=== PATIENT | male | born 1965 | race Caucasian/White ===

== ENCOUNTER 2020-04-30 12:38 | Outpatient (REF) | payer OTHER, SELFPAY ==
[2020-04-30 12:57] LABS: Anion Gap 9.5 mmol/L (3-11); BUN 16 mg/dL (7-18); CO2 28.5 mmol/L (21.0-32.0); CREATININE 1.03 mg/dL (0.70-1.30); Calcium 9.3 mg/dL (8.5-10.1); Chloride 101 mmol/L (98-107); Glucose 74 mg/dL (74-106); Potassium 4.5 mmol/L (3.5-5.1); Sodium 139 mmol/L (136-145)
[2020-04-30 13:03] LABS: Abs Immature Grans 0.04 k/cumm (0.0-0.09); Absolute Basophil Count 0.03 k/cumm (0.0-0.2); Absolute Eosinophil Count 0.19 k/cumm (0.0-0.7); Absolute Monocyte Count 0.76 k/cumm (0.11-0.7); Absolute Neutrophil Count 6.44 k/cumm (1.2-6.7); Basophils % 0.4; Eosinophils % 2.2; HCT 45.6 % (40.0-50.0); HGB 15.2 g/dL (13.5-17.5); Immature Grans % 0.5 %; Lymphocytes % 12.9; Mean Corp. HGB Concentration 33.3 g/dL (32.0-36.0); Mean Corpuscular Hemoglobin 30.9 pg (27.0-33.0); Mean Corpuscular Volume 92.7 fL (80-95); Mean Platelet Volume 9.1 fL (8.0-11.0); Monocytes % 8.9; Neutrophils % 75.1; Platelet Count 346 x1000/uL (130-400); RBC 4.92 m/cumm (4.50-6.00); RBC Distribution Width 13.2 % (11.8-14.1); White Blood Cell Count 8.56 k/cumm (4.4-10.8)
== END 2020-04-30 12:58 ==
LOC: LBN 12:38
PROVIDERS: PCP Family Medicine; Visit Provider Nurse Practitioner Family
DX: Z01.818 Encounter for other preprocedural examination (principal)
CPT/HCPCS: 80048; 85025

== ENCOUNTER 2020-05-02 06:29 | Day surgery (SDC) | payer OTHER, SELFPAY ==
[2020-05-02 06:30] VITALS: BP 132/90; PULSE 65; RESP 18; TEMP 35.4; O2SAT 97
[2020-05-02] MEDS: Tetracaine 0.5% 4 ML BTL OD (07:32)
[2020-05-02] MEDS: Lidocaine 2% Jelly 6 ML SYR (07:33)
[2020-05-02] MEDS: Lidocaine 1% Pres-Free 5 ML VIAL (07:43)
[2020-05-02] MEDS: Balanced Salt Soln.-PLUS 500 ML BAG (07:45)
[2020-05-02] MEDS: Trypan Blue 0.06% 0.5 ML SYR (07:49)
[2020-05-02] MEDS: Moxifloxacin-PF 1 MG/ML VIAL (07:50)
--- NOTE | 2020-05-02 08:10 | W.PM.DSUDISC ---
Discharge Plan Disposition Patient Disposition: HOME Condition: Good Discharge Details Reason For Visit: CATARACT OD Attending Provider: Jensen Cosme Primary Care Provider: Jabari Morales Home Meds and New Rx's Prescriptions: No Action No Known Home Meds RF: 0 Discharge Instructions Stand Alone Forms: Post-op Block Cataract, Post-op Topical Cataract, Aroldo Yung (DSU) Discharge Orders Discharge Orders: Discharge Order (Routine); Ordered 05/02/20 Ordered By: Jensen Cosme DS: Diagnosis Discharge Diagnosis (1) Nuclear sclerotic cataract of right eye: Status: Resolved (2) Posterior subcapsular age-related cataract, right eye: Status: Resolved
--- NOTE | 2020-05-02 08:11 | W.PM.OP ---
Date of service: 05/02/20 Time of Service: 08:12 Operative Note Operative Note DATE OF PROCEDURE: 05/02/20 PRE-OP DIAGNOSIS: Nuclear/posterior subcapsular cataract, right eye; status post myopic LASIK, right eye; poor red reflex, right eye secondary to cataract POST-OP DIAGNOSIS: same PROCEDURE: Cataract extraction using phacoemulsification with intraocular lens implantation, right eye, using capsular staining with Vision Blue SURGEON: Jensen Cosme ANESTHESIA: MAC (with local sub-tenon's anesthetic injection) PATHOLOGY: none sent COMPLICATIONS: None Patient was transported to: same day Patient's condition: stable Implants: Mike [employer] Mike / [employer] Tecnis [id number] Indications: Progressive visual loss due to cataract, right eye Procedure Description: CATARACT SURGERY OPERATIVE REPORT PREOPERATIVE DIAGNOSIS: 1. Nuclear/posterior subcapsular cataract, right eye 2. Poor red reflex secondary to #1 3. Status post myopic LASIK POSTOPERATIVE DIAGNOSIS: Same OPERATION: 1. Cataract extraction using phacoemulsification with posterior chamber intraocular lens implant, right eye. 2. Capsular staining with Vision Blue IOL: IOL Calendar Control Clerk Blood Bank/Model: Mike & Mike / GISELL Tecnis [id number] IOL Power: + 22.0 diopters IOL Serial Number: [id number] Optic Diameter: 6.0mm Haptic/Overall Diameter: 13.0mm PHACO INFO: Jordan Plura Processingurion Vision System with OZil and Active Fluidics Cumulative Dispersed Energy (CDE): 13.62 seconds SURGEON: Jensen Cosme MD, SHELLY ANESTHESIA: Monitored Anesthesia Care (MAC), with local sub-tenon's anesthetic infiltration COMPLICATIONS: None SPECIMENS: None INDICATIONS FOR PROCEDURE: The patient is a 54-year-old gentleman with history of diminished visual acuity in his right eye secondary to the development of nuclear and posterior subcapsular cataract. He has a history of myopic LASIK. He has developed a significant posterior subcapsular cataract with moderate nuclear cataract in the right eye with visual acuity of 20/100. The option of cataract surgery was offered to the patient and he wished to proceed. PROCEDURE: The correct surgical eye was identified and marked as the right eye and the pupil was dilated in the preoperative area using mydriatics and cycloplegics. The dilated pupil size was 7.0 mm. Oral sedation was administered in the form of an Imprimis MKO Melt (midazolam 3mg/ketamine 25mg/ondansetron 2mg). The patient was brought to the operating room where cardiopulmonary monitoring was instituted and surgical time-out was performed, confirming the correct operative eye and IOL power. Topical anesthesia was administered and ophthalmic povidone-iodine 5% was instilled into the conjunctival fornices. Lidocaine gel was applied to the cornea and the rowdy-ocular area was prepped with Betadine 10% solution and draped in the usual sterile fashion for intraocular surgery, including an aperture drape. A Tegaderm transparent film dressing was cut in half and used to cover the lashes and lid margins. Care was taken to sequester the lashes and lid margins under the Tegaderm dressing. A lid speculum was placed between the lids of the operative eye and the Shirin-Korey operating microscope was maneuvered into position. Rizwan scissors were then used to make a conjunctival buttonhole approximately 6mm posterior to the limbus in the inferonasal quadrant. Blunt dissection was carried out to expose bare sclera, and a blunt-tipped sub-tenon?s anesthesia cannula was introduced and passed posteriorly along the globe where non-preserved plain lidocaine was injected into posterior sub-Tenon?s space. A sideport knife was used to make a paracentesis port inferotemporally. Intraocular phenylephrine/lidocaine was injected into the anterior chamber. Air was injected into the anterior chamber, followed by Vision Blue, which was painted over the anterior capsule and then irrigated out with BSS. The anterior chamber was filled with Healon Pro. A 2.4mm keratome knife was used to create a half-thickness groove at the limbus and then to construct a three-plane near-clear corneal tunnel extending 2.0mm into clear cornea at the 10:00 position. The globe was soft with low scleral rigidity. A flap was raised on the anterior capsule and capsulorhexis forceps were used to complete a continuous curvilinear capsulorhexis of 4.8 mm. The anterior chamber was noted to be quite deep with a thin capsule which wanted to extend peripherally. The capsulorrhexis was made intentionally smaller than usual due to the thin capsule and tendency to extend peripherally. Balanced salt solution was then used to perform cortical cleaving hydrodissection and nuclear hydrodelineation until the lens could be freely rotated within the capsular bag. The lens nucleus was then disassembled and removed within the capsular bag and iris plane using phacoemulsification. Residual cortical material was removed using the I/A handpiece. The posterior capsule was carefully polished to remove as much residual lens epithelial cells as safely possible. There was some residual posterior subcapsular plaque in the subincisional area which could not be safely removed. The capsular bag was then inflated and the anterior chamber deepened with viscoelastic. The lens implant described above was inserted into the capsular bag using the GISELL [place] Injector. A Kuglen hook was used to dial the IOL into position. A [employer] nucleus manipulator was then used to divehi the underside of the anterior capsule in the subincisional area and in attempt to remove some of the equatorial capsular plaque. Residual viscoelastic was then removed first from posterior to the IOL, then from the anterior chamber using the I/A handpiece. The lens implant was noted to center nicely within the capsular bag. The incisions were stromally hydrated, and the anterior chamber was reformed using BSS. Then 0.5cc of moxifloxacin 1.0mg/ml were injected into the capsular bag and anterior chamber. The incisions were checked with a Weck spear and found to be secure. Several drops of ophthalmic povidone-iodine 5% were then applied to the eye followed by two drops of Imprimis combination prednisolone/moxifloxacin/nepafenac solution. The drapes were removed and a clear plastic protective eye shield was placed over the eye. The patient was then returned to [facility] Day Surgery in stable condition.
[2020-05-02 08:30] VITALS: BP 128/90; PULSE 60; RESP 18; TEMP 36; O2SAT 97
== END 2020-05-02 08:40 | disposition home or self-care (01) ==
PROVIDERS: PCP Family Medicine; Visit Provider Ophthalmology
PROC: (CPT 66982; principal; 2020-05-02 07:30)
DX: H25.11 Age-related nuclear cataract, right eye (principal); H25.041 Posterior subcapsular polar age-related cataract, right eye; H35.89 Other specified retinal disorders; Z98.890 Other specified postprocedural states
CPT/HCPCS: 66982; V2632

== ENCOUNTER 2020-07-22 01:26 | Outpatient (CLI) | payer OTHER, SELFPAY ==
[2020-07-22 09:11] LABS: Calculated LDL 156 mg/dL (<100); Cholesterol 226 mg/dL (<200); HDL Cholesterol 47 mg/dL (40-60); Triglyceride 117 mg/dL (<150)
== END 2020-07-22 01:46 ==
DX: E78.5 Hyperlipidemia, unspecified (principal)
CPT/HCPCS: 36415; 80061

== ENCOUNTER 2020-09-15 17:06 | Emergency (ER) | payer OTHER, SELFPAY ==
--- NOTE | 2020-09-15 17:22 | W.ED.GENAD ---
Discharge Plan Disposition Patient Disposition: HOME Condition: Stable Discharge Details Clinical Impression: Right ankle sprain, Closed pelvic fracture Primary Care Provider: Angelika Ortega ED Provider: Monica Menjivar Home Meds and New Rx's Prescriptions: No Action sildenafil 100 mg tablet 100 mg PO ONCE Qty: 7 RF: 4 Discharge Instructions Instructions: Ankle Sprain (ED), Pelvic Fracture (ED) Additional Instructions: Ice affected areas for 20 minutes 4-5 times daily for the next 1 to 2 days then can use heat or ice Ibuprofen 600 mg with food 4 times daily for the next 5 days then as needed for pain can add acetaminophen 650 mg 4 times daily for breakthrough pain Use walking boot while ambulating for comfort and support Weight-bearing as tolerated Referrals: [facility] [Provider Group] Medical Decision Making mechanical fall from a ladder, right ankle and left sided pain. ambulatory after accident. xrays negative for ankle/foot fracture. pelvis with stable fracture. walking boot applied, patient pain is managed. ambulating well. Medical Records Medical records reviewed: Yes I reviewed the patient's medical records. Medical records narrative: Exam(s) PROCEDURE INFORMATION: Exam: XR Lumbosacral Spine, 2 or 3 Views Exam date and time: 09/15/2020 5:58 PM Age: 54 years old Clinical indication: Injury or trauma; Blunt trauma (contusions or hematomas); Patient HX: Fall injury, back pain low TECHNIQUE: Imaging protocol: XR of the lumbosacral spine, 2 or 3 views. COMPARISON: No relevant images were readily available for comparison purposes. FINDINGS: Bones/joints: Lumbar vertebral body heights well maintained. Alignment is well preserved without significant listhesis. Bony degenerative changes are at most mild. Soft tissues: unremarkable soft tissues. IMPRESSION: No acute fracture or dislocation of the lumbar spine. Dictated and Authenticated by: Jose Galindo MD. Ordering:DELIA Anderson MD PROCEDURE INFORMATION: Exam: XR Right Foot Complete Exam date and time: 09/15/2020 5:54 PM Age: 54 years old Clinical indication: Foot; Right; Patient HX: Pain, swelling TECHNIQUE: Imaging protocol: XR Right foot. Views: 3 or more views. COMPARISON: No relevant images were readily available for comparison purposes. FINDINGS: Bones/joints: No acute fracture or dislocation Soft tissues: Unremarkable IMPRESSION: No acute fracture or dislocation Dictated and Authenticated by: Jose Galindo MD. Ordering:DELIA Anderson MD Exam(s) PROCEDURE INFORMATION: Exam: XR Right Ankle Exam date and time: 09/15/2020 5:37 PM Age: 54 years old Clinical indication: Ankle; Right; Patient HX: Pain, swelling TECHNIQUE: Imaging protocol: XR Right ankle. Views: 3 or more views. COMPARISON: No relevant images were readily available for comparison purposes. FINDINGS: Prominent soft tissue swelling about the ankle. No acute fracture or dislocation. IMPRESSION: Prominent soft tissue swelling about the ankle without acute fracture or dislocation. Dictated and Authenticated by: Jose Galindo MD. Ordering:DELIA Anderson MD Lab Data Lab results reviewed: Yes I reviewed the patient's lab results. HPI General Mode of arrival: wheelchair. Date/Time Provider Initiated Documentation: 09/15/20 17:08. Limitations to Documentation: no limitations. Information obtained by: patient. HPI Narrative: Patient presents for evaluation of right ankle pain after falling off a ladder approximately 7 feet off the ground. States he was ambulatory after the incident, he did not strike his head he has no head or neck pain. No other injury reported Related Data Home Medications Medication Instructions Recorded Confirmed sildenafil 100 mg tablet 100 mg PO ONCE #7 tab 06/10/20 09/15/20 Previous Rx's Medication Instructions Recorded sildenafil 100 mg tablet 100 mg PO ONCE #7 tab 06/10/20 Allergies Allergy/AdvReac Type Severity Reaction Status Date / Time No Known Allergies Allergy Unverified 09/15/20 17:32 General JYOTI: 4 Review of Systems Constitutional Constitutional: Denies fever(s) Eyes Eyes: Denies change in vision ENT Ears, Nose, Mouth, and Throat: Denies dizziness and Denies neck pain Cardiovascular Cardiovascular: Denies chest pain, Denies rapid heart rate and Denies dyspnea Respiratory Respiratory: Denies chest congestion, Denies cough and Denies dyspnea Gastrointestinal Gastrointestinal: Denies abdominal pain, Denies nausea and Denies vomiting Musculoskeletal Musculoskeletal: Denies back pain, Reports myalgias, Denies deformity, Reports arthralgias, Reports joint swelling, Denies neck pain and Denies numbness Integumentary/Breasts Skin/Breast: Denies rash Neurologic Neurologic: Denies dizziness and Denies numbness Hematologic/Lymphatic Hematologic/Lymphatic: Denies easy bleeding and Denies easy bruising [facility] Medical History (Updated 09/15/20 @ 18:24 by Monica Menjivar NP) Effusion, right knee (01/18/18) Hernia Surgical History (Updated 05/02/20 @ 08:11 by Jensen Cosme MD) History of arthroscopic knee surgery History of hernia repair Family History Mother Hyperlipidemia Father Hyperlipidemia Brother Hyperlipidemia Grandfather Neoplasm LUNG/SMOKER Grandfather No problems noted. Grandmother No problems noted. Grandmother , CHILDBIRTH at age 30. No problems noted. Brother No problems noted. Son No problems noted. Daughter No problems noted. Social History (Updated 06/10/20 @ 09:39 by Sally Morin) Smoking/Tobacco Use Status: Never Smoking risk assessment performed?: Yes Alcohol Intake: current Alcohol Intake frequency: 0-2 drinks per day Alcohol type: beer, wine and hard liquor Drug use: Never Substance use type: does not use Household members: spouse Communication Needs: Hard of Hearing Pets and animals: Yes Pets and animals: dog(s) Sexually active: Yes What is your relationship status?: Panel score (0-1 are the most socially isolated patients): 1 Duration: 15-30 minutes/day Frequency: daily Do you feel safe at home: Yes Do you feel safe in your relationship?: Yes Exam Const General: cooperative, healthy appearing and comfortable Nutritional Appearance: overweight Orientation: alert, awake and oriented x3 HENMT Head: normal to inspection, normocephalic and atraumatic Mouth: oral mucosae normal Chest Chest: normal inspection of the chest Resp Effort & Inspection: normal respiratory effort Cardio Rate: regular rate Rhythm: regular rhythm GI Inspection: normal to inspection Palpation: soft Auscultation: normal bowel sounds Skin General skin exam: no rashes or lesions noted Neuro General: patient alert, patient awake, patient oriented x3 and no focal motor deficits
[2020-09-15 17:25] VITALS: BP 139/89; PULSE 72; RESP 16; TEMP 36.3; O2SAT 97
--- NOTE | 2020-09-15 17:30 | DI.RAD_ITS ---
EXAM: XR PELVIS AP CLINICAL HISTORY: fall injury TECHNIQUE: COMPARISON: CR,XR XR LUMBAR SPINE AP, LAT from 09/15/2020 FINDINGS: AP view the pelvis and three views lumbosacral spine were obtained. There is questionable lucency of the superior pubic ramus adjacent to the pubic symphysis, nondisplac ed fracture not excluded, oblique views or CT suggested if there is clinical suspicion of fracture at this site. Otherwise the bones of the pelvis and lumbar spine appear intact except for mild degenerative changes of the lumbar spine and hips. No vertebral compression fracture. Intervertebral disc heights appea r well maintained. IMPRESSION: Questionable finding involving left superior pubic ramus left, fracture not excluded, additional obli que views or CT may be considered if there is symptomatology referable to this area. RADIATION DOSE DELIVERED: Total DLP Total DLP
--- NOTE | 2020-09-15 17:30 | DI.RAD_ITS ---
EXAM: XR ANKLE RT COMPLETE CLINICAL HISTORY: pain swelling TECHNIQUE: COMPARISON: CR LEFT ANKLE COMPLETE from 09/12/2014 CR,XR XR FOOT RT COMPLETE from 09/15/2020 FINDINGS: Three views of the ankle and three views of the foot were obtained. The ankle mortise is well mainta ined. There is moderate soft tissue swelling adjacent to the lateral malleolus. There is no evidenc e of fracture or dislocation involving the bones of the foot or ankle. IMPRESSION: RADIATION DOSE DELIVERED: Total DLP Total DLP
--- NOTE | 2020-09-15 18:06 | DI.VRAD_ITS ---
PROCEDURE INFORMATION: Exam: XR Right Ankle Exam date and time: 09/15/2020 5:37 PM Age: 54 years old Clinical indication: Ankle; Right; Patient HX: Pain, swelling TECHNIQUE: Imaging protocol: XR Right ankle. Views: 3 or more views. COMPARISON: No relevant images were readily available for comparison purposes. FINDINGS: Prominent soft tissue swelling about the ankle. No acute fracture or dislocation. IMPRESSION: Prominent soft tissue swelling about the ankle without acute fracture or dislocation. Dictated and Authenticated by: Jose Galindo MD. Ordering:DELIA Anderson MD
--- NOTE | 2020-09-15 18:07 | DI.VRAD_ITS ---
PROCEDURE INFORMATION: Exam: XR Right Foot Complete Exam date and time: 09/15/2020 5:54 PM Age: 54 years old Clinical indication: Foot; Right; Patient HX: Pain, swelling TECHNIQUE: Imaging protocol: XR Right foot. Views: 3 or more views. COMPARISON: No relevant images were readily available for comparison purposes. FINDINGS: Bones/joints: No acute fracture or dislocation Soft tissues: Unremarkable IMPRESSION: No acute fracture or dislocation Dictated and Authenticated by: Jose Galindo MD. Ordering:DELIA Anderson MD
--- NOTE | 2020-09-15 18:08 | DI.VRAD_ITS ---
PROCEDURE INFORMATION: Exam: XR Lumbosacral Spine, 2 or 3 Views Exam date and time: 09/15/2020 5:58 PM Age: 54 years old Clinical indication: Injury or trauma; Blunt trauma (contusions or hematomas); Patient HX: Fall injury, back pain low TECHNIQUE: Imaging protocol: XR of the lumbosacral spine, 2 or 3 views. COMPARISON: No relevant images were readily available for comparison purposes. FINDINGS: Bones/joints: Lumbar vertebral body heights well maintained. Alignment is well preserved without significant listhesis. Bony degenerative changes are at most mild. Soft tissues: unremarkable soft tissues. IMPRESSION: No acute fracture or dislocation of the lumbar spine. Dictated and Authenticated by: Jose Galindo MD. Ordering:DELIA Anderson MD
--- NOTE | 2020-09-15 18:11 | DI.VRAD_ITS ---
PROCEDURE INFORMATION: Exam: XR Pelvis Exam date and time: 09/15/2020 5:57 PM Age: 54 years old Clinical indication: Pelvic pain; Patient HX: Fall injury TECHNIQUE: Imaging protocol: XR pelvis. Views: 1 or 2 view. COMPARISON: No relevant images were readily available for comparison purposes. FINDINGS: Bones/joints: There is a subtle lucency along the left superior pubic ramus adjacent to the pubic symphysis. No other fitting evidence of an acute fracture or dislocation. Soft tissues: Unremarkable. IMPRESSION: Possible nondisplaced left superior pubic ramus fracture. Correlate with point tenderness or if clinically indicated additional imaging with CT. Dictated and Authenticated by: Jose Galindo MD. Ordering:DELIA Anderson MD
[2020-09-15 18:36] VITALS: BP 133/88; PULSE 72; RESP 17; TEMP 36.7; O2SAT 96
--- NOTE | 2020-09-15 22:02 | NUR.NOTE ---
ts vital signs where WNL at discharge . they were taken by the tech. pt was d/c via w.c.Nursing Note:
== END 2020-09-15 18:40 | disposition home or self-care (01) ==
PROVIDERS: Emergency Provider Nurse Practitioner Acute Care
DX: S93.491A Sprain of other ligament of right ankle, initial encounter (principal); S32.512A Fracture of superior rim of left pubis, initial encounter for closed fracture; M54.5 Low back pain; W11.XXXA Fall on and from ladder, initial encounter
CPT/HCPCS: 99284; 72100; 72170; 73610; 73630; 99285

== ENCOUNTER 2020-09-19 03:51 | Outpatient (CLI) | payer OTHER, SELFPAY ==
[2020-09-21 16:45] LABS: COVID-19 RT-PCR Result NEGATIVE (Negative)
== END 2020-09-19 04:11 ==
PROVIDERS: Physical Therapy Assistant; Visit Provider Surgery
DX: Z11.59 Encounter for screening for other viral diseases (principal); Z01.818 Encounter for other preprocedural examination
CPT/HCPCS: U0003

== ENCOUNTER 2020-09-23 09:00 | Day surgery (SDC) | payer OTHER, SELFPAY ==
[2020-09-23 09:17] VITALS: BP 114/72; PULSE 75; RESP 16; TEMP 36.6; O2SAT 95
[2020-09-23] MEDS: Lactated Ringers 1,000 ML 80 ML IV (09:35)
--- NOTE | 2020-09-23 10:00 | W.PM.DSUDISC ---
Discharge Plan Disposition Patient Disposition: HOME Condition: Good Discharge Details Reason For Visit: Colonoscopy Attending Provider: Karen Whitten Primary Care Provider: Angelika Ortega Home Meds and New Rx's Prescriptions: Continued sildenafil 100 mg tablet 100 mg PO ONCE Qty: 7 RF: 4 acetaminophen 500 mg Tablet 500 mg PO Q4H RF: 0 ibuprofen 200 mg Tablet 200 mg PO Q8H PRNRF: 0 Discharge Instructions Additional Instructions: Findings: One tiny polyp was removed from the cecum. My office will contact you with biopsy results. Follow up: Plan for follow up colonoscopy in 5 years. Please call if you develop: fevers >101.5 Nausea or Vomiting Abdominal pain that is not transient DAY SURGERY UNIT POST COLONOSCOPY INSTRUCTIONS 1. Because there will be medication in your system for the next 24 hours, you may feel a little sleepy. Your coordination will be affected. Therefore: a. Do not drive or operate dangerous equipment for 24 hours. b. Do not drink alcohol beverages for 24 hours (not even beer). c. Plan to go home and rest for the day. 2. Generally there are no restrictions on your activity after a day or so has gone by, but you may feel a bit fatigued for a few days. 3 After you arrive home you may have a light meal and return to a normal diet as you can tolerate it without feeling sick to your stomach. 4. After surgery, you may feel pain or discomfort. This should be only transient, but if it persists please contact your doctor. 5. If there are any questions regarding the findings of your procedure, please feel free to contact your doctor. 6. If you are unable to contact your doctor with a problem, contact the hospital at [phone]. 7. Continue all your regular medications unless directed otherwise. I understand the above instructions and have no questions. Signature of Patient or Responsible Adult Escort Date/Time Name of Responsible Adult Escort Signature of Nurse Date/Time Activity:: Activity as Tolerated Diet:: As Tolerated Discharge Orders Discharge Orders: Discharge Order (Routine); Ordered 09/23/20 Ordered By: Karen Whitten DS: Diagnosis Discharge Diagnosis (1) Colon polyp: Status: Acute
--- NOTE | 2020-09-23 10:01 | W.COLOREPORT ---
Date of service: 09/23/20 Time of Service: 10:48 Colonoscopy Report Date of procedure: 09/23/20 Pre-op diagnosis general: Screening Post-op diagnosis procedure note: other (Cecal polyp) Procedure: Colonoscopy with cold forceps polypectomy Surgeon: Karen Whitten Anesthesia proc note operative: MAC Indications: This 54 year old man presents for his first screening colonoscopy. No symptoms or FH colon cancer. Procedure Description: The patient was placed in the left Aguayo position. Propofol was titrated to sedation. Digital rectal examination revealed no abnormalities. The scope was advanced to the cecum without difficulty. The ileocecal valve and appendiceal orifice were clearly identified. The prep was good. A tiny polyp was present at the appendiceal orifice and was removed with the cold forceps. The scope was slowly withdrawn over the course of greater than 6 minutes with no abnormalities seen in the ascending, transverse, descending, sigmoid colon or rectum including on retroflexed view. The patient tolerated the procedure well and was stable to recovery. If the polyp is adenomatous, plan for colonoscopy in 5 years.
--- NOTE | 2020-09-23 10:23 | BOWEL_PTH ---
PATIENT: FARAZ ELIZONDO LOC: [facility] U#:[id number] AGE/SX: 54/M ROOM: RE09/23/[address]: Karen Whitten MD : 1965 BED: DIS: 09/23/2020 SPEC #: [id number] RECD: 09/23/20 12:19 STATUS: RONALD REQ #: [id number] EFRAIN: 09/23/20 10:[address]: Karen Whitten DEPT: Surgical Specimen RECD BY: Obdulia Flores ENTERED: 09/23/20 12:20 SP TYPE: Bowel OTHR DR: Angelika Ortega APRN Tissues: 1 - BIOPSY BOWEL Procedures: GROSS AND MICRO LEVEL 4 Comments: [id number]
[2020-09-23 11:13] VITALS: BP 102/61; PULSE 67; RESP 18; TEMP 36.2; O2SAT 96
== END 2020-09-23 11:25 | disposition home or self-care (01) ==
PROVIDERS: Visit Provider Surgery
PROC: 0DJD8ZZ Inspection of Lower Intestinal Tract, Via Natural or Artificial Opening Endoscopic (ICD-10-PCS; CPT 45378; principal; 2020-09-23 11:00)
DX: Z12.11 Encounter for screening for malignant neoplasm of colon (principal); D12.0 Benign neoplasm of cecum
CPT/HCPCS: 45380; 88305; J2704